=== PATIENT | female | born 1990 | race Caucasian/White ===

== ENCOUNTER 2016-06-21 09:53 | Observation (INO) | payer OTHER ==
--- NOTE | 2016-06-21 10:25 | PHYS DOC ---
Past Medical History Past Medical History: Other Additional Past Medical Histor: ovarian cyst; hyperemesis ,PTSD Past Surgical History: No Surgical History Alcohol Use: None Drug Use: None Adult General Chief Complaint Chief Complaint: SORE THROAT HPI HPI Patient is a 25 year old female, reported 4 para 3, approximately 8/2- 9 months gestation, who presents to the emergency Department today with complaints of an atraumatic sore throat and nonproductive cough with body aches that began yesterday. Patient denies exposure to strep or influenza. She denies antibiotic use, hospitalization or foreign travel within the past 90 days. She does not have an side laster. She has not had an side laster during the course of her as she believes that her has been otherwise uncomplicated and she has no complaints of abdominal pain, pelvic pain, vaginal bleeding or vaginal discharge. She reports that she does have episodes of dysuria without hematuria. She denies flank pain. Review of Systems Review of Systems Constitutional: Denies fever or chills [] Eyes: Denies change in visual acuity, redness, or eye pain [] HENT: Denies nasal congestion or sore throat [] Respiratory: Denies cough or shortness of breath [] Cardiovascular: No additional information not addressed in HPI [] GI: Denies abdominal pain, nausea, vomiting, bloody stools or diarrhea [] : Denies dysuria or hematuria [] Musculoskeletal: Denies back pain or joint pain [] Integument: Denies rash or skin lesions [] Neurologic: Denies headache, focal weakness or sensory changes [] Endocrine: Denies polyuria or polydipsia [] Allergies Allergies Allergies Coded Allergies Type Severity Reaction Last Updated Verified promethazine Allergy Intermediate swelling 01/27/14 No Physical Exam Physical Exam Constitutional: Well developed, well nourished, no acute distress, non-toxic appearance. Patient is tearful. HENT: Normocephalic, atraumatic, bilateral external ears normal, oropharynx moist, no oral exudates, nose normal. There is no hot potato speech or trismus. Posterior oropharynx is erythematous with tonsils 2/4 bilaterally with a scant amount of exudative plaque. There is no peritonsillar swelling or uvular deviation. Eyes: PERRLA, EOMI, conjunctiva normal, no discharge. [] Neck: Normal range of motion, no tenderness, supple, no stridor. There is no meningismus or pain with range of motion. There is bilateral anterior cervical lymphadenopathy. Cardiovascular:Heart rate 104 with regular rhythm, no murmur. Lungs & Thorax: Bilateral breath sounds clear to auscultation [] Abdomen: Gravid abdomen consistent with a third trimester . Abdomen is nontender to palpation. There is no suprapubic tenderness. heart rate 138. Skin: Warm, dry, no erythema, no rash. Bruising to the proximal forearms, just below the AC flexor creases. There are also a couple of very small hypodermic needle palacios suspicious for IV drug use. Back: No tenderness, no CVA tenderness. [] Extremities: No tenderness, no cyanosis, no clubbing, ROM intact, no edema. [] Neurologic: Alert and oriented X 3, normal motor function, normal sensory function, no focal deficits noted. [] Psychologic: Dysphoric mood with a sad affect. Current Patient Data Vital Signs Vital Signs Date Time Temp Pulse Resp B/P Pulse Ox O2 Delivery O2 Flow Rate FiO2 06/21/16 10:25 97.4 106 16 128/77 96 Room Air 97.4 Lab Values Laboratory Tests Test 06/21/16 10:15 06/21/16 10:30 Influenza Type A Antigen Negative (NEGATIVE) Influenza Type B Antigen Negative (NEGATIVE) Urine Collection Type Unknown Urine Color Yellow Urine Clarity Cloudy Urine pH 7.0 Urine Specific [place] 1.015 Urine Protein Negativemg/dL (NEG-TRACE) Urine Glucose (UA) Negativemg/dL (NEG) Urine Ketones (Stick) Negativemg/dL (NEG) Urine Blood Negative (NEG) Urine Nitrite Negative (NEG) Urine Bilirubin Negative (NEG) Urine Urobilinogen Dipstick 0.2mg/dL (0.2 mg/dL) Urine Leukocyte Esterase Large (NEG) Urine RBC Rare/HPF (0-2) Urine WBC 5-10/HPF (0-4) Urine Squamous Epithelial Cells Many/LPF Urine Bacteria Few/HPF (0-FEW) Urine Opiates Screen Neg (NEG) Urine Methadone Screen Neg (NEG) Urine Barbiturates Neg (NEG) Urine Phencyclidine Screen Neg (NEG) Urine Amphetamine/Methamphetamine Neg (NEG) Urine Benzodiazepines Screen Neg (NEG) Urine Cocaine Screen Neg (NEG) Urine Cannabinoids Screen Pos (NEG) Urine Ethyl Alcohol Neg (NEG) Group A Streptococcus Rapid Positive (NEGATIVE) EKG EKG [] Radiology/Procedures Radiology/Procedures [] Course & Med Decision Making Course & Med Decision Making Rapid strep is positive. Influenza test is negative. Urine shows no evidence of urinary tract infection. Patient opted to receive injection of Bicillin LA here in the emergency department. She verbalizes understanding of need to follow-up with an OB. Patient's nurse also be coordinated with L&D to provide resources and contacts. Precious Disclaimer Precious Disclaimer This electronic medical record was generated, in whole or in part, using a voice recognition dictation system. Departure Departure Impression: Primary Impression: Strep pharyngitis Disposition: HOME, SELF-CARE Condition: GOOD Referrals: NO PCP (PCP) Patient Instructions: ABCs of , Strep Throat, [id number] Additional Instructions: 1. You received an antibiotic called Bicillin LA here in the emergency department. You do not need any additional antibiotics. 2. Take the medication as prescribed. 3. Review the discharge instructions provided for self care and reasons to return to the emergency department. 4. Please follow the guidelines in information provided for assistance in finding an side laster to address your . Scripts Hydrocodone Bit/Acetaminophen (Hydrocodone-Apap 7.5-325/15 Soln )15 Ml [id number] Ml PO PRN Q6HRS PRN PAIN #120 ML Ref 0 Prov:ELIUD PATEL 06/21/16 ELIUD PATEL Jun 21, 2016 10:25
[2016-06-21 10:47] LABS: BILIRUBIN,URINE NEGATIVE (NEG); GLUCOSE,URINE NEGATIVE (NEG); NITRITE,URINE NEGATIVE (NEG); PROTEIN,URINE NEGATIVE (NEG-TRACE); UROBILINOGEN,URINE 0.2 mg/dL (0.2 mg/dL)
[2016-06-21 10:48] LABS: BARBITURATES NEG (NEG); BENZODIAZEPINES NEG (NEG); CANNABINOIDS POS (NEG); COCAINE NEG (NEG); METHADONE NEG (NEG); OPIATES NEG (NEG); PHENCYCLIDINE NEG (NEG)
[2016-06-21 10:49] LABS: ETHANOL, URINE NEG (NEG)
[2016-06-21 10:54] LABS: OBC FLU VALID
[2016-06-21 10:55] LABS: NEGATIVE OBC STREP NEG; POSITIVE OBC STREP POS
[2016-06-21 11:03] LABS: BACTERIA,URINE FEW /HPF (0-FEW); RBC,URINE RARE /HPF (0-2)
[2016-06-21 11:04] LABS: SQUAMOUS EPITHELIAL CELL,UR MANY /LPF
[2016-06-21] MEDS ORDERED: HYDR15SO4 PO (11:16)
[2016-06-21] MEDS ORDERED: PENICILLIN G BENZATHINE LA 1,200,000 UNIT/2 ML DISP.SYRIN. IM ONE (11:30)
[2016-06-21 11:49] VITALS: BP 126/70
[2016-06-21] MEDS ORDERED: BENZOCAINE/MENTHOL LOZENGE. PO PRN (12:45)
[2016-06-21] MEDS ORDERED: HYDROCODONE/APAP 7.5/325MG ORAL 15 ML SOLUTION. PO PRN ×2 (12:45→17:30)
[2016-06-21] MEDS ORDERED: PHENOL ORAL SPRAY 177ML BOTTLE. PO PRN (13:15)
[2016-06-21 13:36] LABS: BASO % 0 % (0-3); EOS % 1 % (0-3); HEMATOCRIT 35.3 % (36.0-47.0); HEMOGLOBIN 11.8 g/dL (12.0-15.5); LYMPH % 7 % (24-48); MEAN CORPUSCULAR HEMOGLOBIN 28 pg (25-35); MEAN CORPUSCULAR HGB CONC 34 g/dL (31-37); MEAN CORPUSCULAR VOLUME 84 fL (79-100); MONO % 5 % (0-9); NEUT % 87 % (31-73); PLATELET COUNT 238 x10^3/uL (140-400); RED BLOOD COUNT 4.22 x10^6/uL (3.50-5.40); RED CELL DISTRIBUTION WIDTH 16.7 % (11.5-14.5)
[2016-06-21 14:01] LABS: PLT ESTIMATE ADEQUATE (ADEQUATE)
[2016-06-21 14:12] LABS: ALBUMIN 2.4 g/dL (3.4-5.0); ALBUMIN/GLOBULIN RATIO 0.7 (1.0-1.7); CALCIUM 8.2 mg/dL (8.5-10.1); CREATININE 0.5 mg/dL (0.6-1.0); GFR 151.6; TOTAL BILIRUBIN 0.2 mg/dL (0.2-1.0)
--- NOTE | 2016-06-21 14:12 | RAD ---
Indication minimal care. Assess . A limited obstetrical ultrasound examination was performed. Note is made of an examination 11/16/2015 suggesting a possible small gestational sac. There is a single viable IUP. heart rate 140 was documented. The current presentation is cephalic. The biparietal diameter of 8.3 cm and head circumference of 30.4 cm are compatible with a gestational age of approximately 33 weeks 5 days. Abdominal circumference of 31.5 cm suggests a gestational age of 35 weeks 3 days. Femoral length of 6 cm suggests a gestational age of 31 weeks. Average gestational age is approximately 33 weeks 3 days. Estimated weight is 5 lbs. 2 oz. A 4 chambered heart was seen. Fluid was seen in the bladder. There was mild bilateral hydronephrosis. The amount of amniotic fluid is low and the calculated index is 6. The placenta is posterior and left lateral. No gross anomalies were seen but a full survey was not performed IMPRESSION: Single viable intrauterine fetus of approximately 33 weeks 3 days gestation. There is some discrepancy noted in the estimated gestational age (slightly discrepant numbers referable to the head femur and body) Oligohydramnios. Mild bilateral hydronephrosis
[2016-06-21] MEDS ORDERED: BETAMET ACET&NA PHOS 30 MG/5 ML VIAL. IM SCH (17:00)
== END 2016-06-21 19:20 | disposition left against medical advice (07) ==
LOC: ER 09:53 → 3 SO LND 12:05
PROVIDERS: ADMIT Specialist; ATTEND Specialist
DX: O26.891 Other specified pregnancy related conditions, first trimester (principal); J02.0 Streptococcal pharyngitis; O99.341 Other mental disorders complicating pregnancy, first trimester; F43.10 Post-traumatic stress disorder, unspecified; Z3A.08 8 weeks gestation of pregnancy
CPT/HCPCS: 36415; 76815; 80053; 81001; 85007; 85027; 86703; 86762; 86850; 86900; 86901; 87086; 87340; 87341; 87804; 87880; 96372; G0378; G0379; G0481; J0561; J0702